=== PATIENT | female | born 1975 | race Caucasian/White ===

== ENCOUNTER 2019-02-02 07:46 | Emergency (ER) | payer MEDICAID ==
[~2019-02-02] VITALS: Ht 149.9 cm; Wt 74.4 kg
[2019-02-02 07:51] VITALS: Ht 149.9 cm; Wt 74.4 kg
[2019-02-02 09:40] VITALS: BP 114/75
== END 2019-02-02 09:44 | disposition home or self-care (01) ==
LOC: ED 07:46
DX: H81.10 Benign paroxysmal vertigo, unspecified ear (principal); R51 Headache
CPT/HCPCS: J1885; J8597